=== PATIENT | female | born 1990 ===

== ENCOUNTER 2017-01-23 23:14 | Emergency (ER) | payer MEDICAID, OTHER ==
[2017-01-24 05:01] VITALS: BP 120/73; PULSE 94; RESP 18; TEMP 98
--- NOTE | 2017-01-24 08:04 | OBDCSUM ---
Datetime: 01/24/2017 00:30 Discharged to, Provider: Home Follow up at, Provider: Dr Centeno Disch Instr Activity: Normal activity Disch Instr Diet: Regular Discharge Diagnosis, Provider: Matt Labor - Undelivered Discharge Time: 01/24/2017 00:35 Follow up in weeks, Provider: 01/27/17 as scheduled Disch Referrals: None
--- NOTE | 2017-01-24 08:05 | OBHP ---
Datetime: 01/24/2017 00:58 IP Adm Impression: Term, intrauterine IP Admit Plan: Observation/Evaluation; Discharge home Admit Comment, IP Provider: Patient is a @ 37.5 wks, presents with contractions since 5am, no v aginal bleeding, no leaking, +FM. Patient has no issues in the , no medical problems, no all ergies, no medications. VE=1-2/70/-3, LKA=346 mod barry, +early decel noted and accelerations noted. Soy newman does not appear to be in active labor at this time. Labor precautions given, patient discharged home, F/U appt in office on 01/27 Pelvic Type - PN: Adequate Extremities - PN: Normal Abdomen - PN: Normal Back - PN: Normal Breast - PN: Normal Lungs - PN: Normal Heart - PN: Normal Thyroid - PN: Normal Neurologic - PN: Normal HEENT - PN: Normal General - PN: Normal FHR - Baseline A Provider: 145 Contraction Comments Provider: occasional EGA AdmitDate IP: 37.5 Vital Signs Provider: Reviewed; Within Normal Limits IP Chief Complaint: Uterine contractions NICHD Variability Prov Fetus A: Moderate 6-25bpm NICHD Accel Fetus A IP Provider: 15X15 FHR Category Provider Fetus A: Category I NICHD Decel Fetus A IP Provider: Early Dilatation, Provider: 1-2 Effacement, Provider: 70 Station, Provider: -3 Genitourinary Exam: Normal DTRs - PN: Normal
== END 2017-01-24 00:40 | disposition home or self-care (01) ==
LOC: H.EROB2 23:14
DX: O47.1 False labor at or after 37 completed weeks of gestation (principal); Z3A.37 37 weeks gestation of pregnancy

== ENCOUNTER 2017-01-24 20:09 | Inpatient (IN) | payer OTHER ==
[2017-01-24 20:23] VITALS: BMI 29.9
--- NOTE | 2017-01-24 20:47 | OBADHP ---
Datetime: 01/24/2017 20:38 Admit Comment, IP Provider: 26yo g1 edc 02/01 @38.6wks with c/o painful ctxs 03/24 since 5am. denies srom or decreased fm. state ob hx unremarkable pmhx_ pshx: denies nkda med: pnv shx: denies i: 38.6wks labor eval p observe Pelvic Type - PN: Adequate Extremities - PN: Normal Abdomen - PN: Normal Heart - PN: Normal Neurologic - PN: Normal HEENT - PN: Normal General - PN: Normal FHR - Baseline A Provider: 150 Membranes, Provider: Intact Contraction Comments Provider: q 90sec Vital Signs Provider: Within Normal Limits IP Chief Complaint: Uterine contractions NICHD Variability Prov Fetus A: Moderate 6-25bpm NICHD Decel Fetus A IP Provider: None Dilatation, Provider: 2 Effacement, Provider: 80 Station, Provider: -1 Genitourinary Exam: Normal EGA AdmitDate IP: 37.5 IP Adm Impression: Term, intrauterine IP Admit Plan: Observation/Evaluation Datetime: 01/24/2017 00:58 Back - PN: Normal Breast - PN: Normal Lungs - PN: Normal Thyroid - PN: Normal NICHD Accel Fetus A IP Provider: 15X15 FHR Category Provider Fetus A: Category I DTRs - PN: Normal
[2017-01-24] MEDS: Lactated Ringer's 1,000 ML IV SCH (22:00)
[2017-01-24 23:29] LABS: BASO # 0.1 K/uL (0.0-0.2); BASO % 0.4 % (0.0-2.0); EOS % 0.2 % (0.0-4.0); HEMOGLOBIN 8.5 g/dL (12.0-16.0); LYMPH # 3.1 K/uL (1.0-4.3); LYMPH % 23.5 % (20.0-40.0); MEAN CELL VOLUME 68.9 fl (81.0-99.0); MEAN CORPUSCULAR HEMOGLOBIN 20.5 pg (27.0-31.0); MEAN CORPUSCULAR HGB CONC 29.7 g/dL (33.0-37.0); MEAN PLATELET VOLUME 8.2 fl (7.2-11.7); MONO # 1.2 K/uL (0.0-0.8); NEUT # 8.9 K/uL (1.8-7.0); NEUT % 66.9 % (50.0-75.0); RBC 4.16 Mil/uL (3.80-5.20); RED CELL DISTRIBUTION WIDTH 23.7 % (11.5-14.5); WHITE BLOOD COUNT 13.2 K/uL (4.8-10.8)
[2017-01-25] MEDS: Lactated Ringer's 1,000 ML IV SCH (06:00)
[2017-01-25] MEDS ORDERED: Lactated Ringer's 1,000 ML IV SCH ×2 (08:00→11:05)
--- NOTE | 2017-01-25 08:00 | OBADHP ---
Datetime: 01/25/2017 07:58 Admit Comment, IP Provider: 26yo g1 edc 02/01 @38.6wks with c/o painful ctxs / since 5am. denies srom or decreased fm. state ob hx unremarkable. pt states she was able to sleep after receiving morph ine. she c/o onset of painful ctxs, desires epidural pmhx_ pshx: denies nkda med: pnv shx: denies o: 5cm/90/-1 i: 38.6wks labor p admit for epidural Dilatation, Provider: 5 Effacement, Provider: 90 Station, Provider: -1 Datetime: 01/24/2017 20:38 Comments, ACOG Physical Exam: gbs, hiv, rpr neg EGA AdmitDate IP: 37.5
[2017-01-25] MEDS ORDERED: Fentanyl/Bupivacaine HCl 250 ML EPI ONE (08:13)
--- NOTE | 2017-01-25 10:16 | OBPN ---
Datetime: 01/25/2017 10:11 IP Progress Impression: Normal progression of labor IP Informed Consent Obtain: Vaginal Delivery IP Procedures: Artificial ROM IP Progress Plan: Continue present management Membranes, Provider: Ruptured Contraction Comments Provider: q 2-3 mins FHR - Baseline A Provider: 140 IP Progress Note Comment: Patient is comfortable s/p epidural. VE=6/90/-1, AROM, clear fluid [id number] mod barry, +accels, no decels TOCO = ctxning q 2-3 mins A/P 1. Patient comfortable s/p epidural, now 6cm 2. CEFM and TOCO 3. Re-evaluate as needed Vital Signs Provider: Reviewed; Within Normal Limits NICHD Accel Fetus A IP Provider: 15X15 NICHD Variability Prov Fetus A: Moderate 6-25bpm Dilatation, Provider: 6 Effacement, Provider: 90 Station, Provider: -1 NICHD Decel Fetus A IP Provider: None Datetime: 01/24/2017 00:58 FHR Category Provider Fetus A: Category I
[2017-01-25] MEDS ORDERED: Oxytocin 30 units/LR 500ML 30 U/500 ML BAG IV ONE (11:25)
--- NOTE | 2017-01-25 11:34 | OBPN ---
Datetime: 01/25/2017 11:18 IP Progress Impression: Normal progression of labor IP Informed Consent Obtain: Vaginal Delivery IP Procedures: Sterile Vag Exam IP Progress Plan: Continue present management Membranes, Provider: Ruptured Contraction Comments Provider: q 2-4 mins FHR - Baseline A Provider: 140 IP Progress Note Comment: Patient evaluated, now 8cm/90/0 [id number] mod barry, +accels, no decels TOCO = ctxning q 3-4 mins A/P 1. WIll start Pitocin for augmentation. Patient now 8cm 2. CEFM and TOCO 3. Re-evaluate as needed Vital Signs Provider: Reviewed; Within Normal Limits NICHD Accel Fetus A IP Provider: 15X15 NICHD Variability Prov Fetus A: Moderate 6-25bpm Dilatation, Provider: 8 Effacement, Provider: 90 Station, Provider: 0 NICHD Decel Fetus A IP Provider: None
[2017-01-25] MEDS ORDERED: Benzocaine/Menthol SPRAY ONE (16:14)
--- NOTE | 2017-01-25 16:19 | OBDS ---
DELIVERY PERSONNEL Delivery Doctor: Alejandro Centeno MD Business Services Tech: Eveline Barron RN Anesthesiologist: Den Nowak MD MATERNAL INFORMATION Delivery Anesthesia: Epidural Medications in Delivery: pitocin 20 units Estimated Blood Loss (ml): 150 Placenta Cultured: No Maternal Complications: None Provider Comments: of live male infant OA presentation, 6lbs 7oz, 9/9 followed by shoulders and rest of infant, mouth and nose were suctioned, cord clamped and cut, cord blood obtained, placenta d elivered spontaneously, fundus firm, [id number], vaginal abrasion repaired with 3-0 vicry rapide, nusrat ent tolerated procedure well LABOR SUMMARY EDC: 02/09/2017 00:00 No. Babies in Womb: 0 Attempted: No Labor Anesthesia: Epidural LABOR INFORMATION Reason for Induction: Not Applicable Onset of Labor: 01/24/2017 21:00 Complete Dilatation: 01/25/2017 12:16 Oxytocin: Augmentation Group B Beta Strep: Negative Antibiotics # of Doses: n/a Antibiotics Time of Last Dose: n/a Steroids Given: None Reason Steroids Not Administered: Not Applicable MEMBRANES Membranes Rupture Method: Artificial Rupture of Membranes: 01/25/2017 09:57 Length of Rupture (hrs): 6.08 Amniotic Fluid Color: Clear Amniotic Fluid Amount: Large Amniotic Fluid Odor: Normal STAGES OF LABOR Stage 1 hrs: 15 Stage 1 min: 16 Stage 2 hrs: 3 Stage 2 min: 46 Stage 3 hrs: -1 Stage 3 min: -56 Total Time in Labor hrs: 17 Total Time in Labor min: 6 VAGINAL DELIVERY Episiotomy: None Laceration Extension: N/A Laceration Type: None Other Laceration: Abression Initial Vag Sponge Count: 5 Final Vag Sponge Count: 5 Initial Vag Sharps Count: 1 Final Vag Sharps Count: 1 Sponge Count Correct: Yes Sharps Count Correct: Yes BABY A INFORMATION Delivery Date/Time: 01/25/2017 16:02 Method of Delivery: Vaginal Born in Route : No : N/A Forceps: N/A Vacuum Extraction: N/A Shoulder Dystocia : No SHOULDER DYSTOCIA BABY A Delivery Date/Time: 01/25/2017 16:02 PRESENTATION/POSITION BABY A Presentation: Breech Cephalic Presentation: Vertex Vertex Position: OA Breech Presentation: N/A PLACENTA INFORMATION BABY A Placenta Delivery Time : 01/25/2017 14:06 Placenta Method of Delivery: Spontaneous Placenta Status: Delivered SCORES BABY A Heart Rate 1 min: >100 bpm Resp Effort 1 min: Good Cry Reflex Irritability 1 min: Cough or Sneeze or Pulls Away Muscle Tone 1 min: Active Motion Color 1 min: Body [place], Extremities Blue SCORE 1 MIN: 9 Heart Rate 5 min: >100 bpm Resp Effort 5 min: Good Cry Reflex Irritability 5 min: Cough or Sneeze or Pulls Away Muscle Tone 5 min: Active Motion Color 5 min: Body [place], Extremities Blue SCORE 5 MIN: 9 INFANT INFORMATION BABY A Gestational Age at Delivery: 39.0 Gestational Status: Term Infant Outcome : Liveborn Infant Condition : Stable Sex: Male IDENTIFICATION/MEDS BABY A ID Band Number: [id number] WEIGHT/LENGTH BABY A Birthweight (gms): 2925 Infant Weight (lb): 6 Infant Weight (oz): 7 CORD INFORMATION BABY A No. Cord Vessels: 3 Nuchal Cord : N/A Cord Blood Taken: Yes Infant Suction: Mouth; Nose
[2017-01-25] MEDS ORDERED: Oxycodone/Acetaminophen 5/325 mg Tab PO PRN (16:20)
[2017-01-25] MEDS ORDERED: Benzocaine/Menthol SPRAY TOP PRN (16:20)
[2017-01-26 07:22] LABS: MEAN CELL VOLUME 68.1 fl (81.0-99.0); MEAN CORPUSCULAR HEMOGLOBIN 20.9 pg (27.0-31.0); MEAN CORPUSCULAR HGB CONC 30.7 g/dL (33.0-37.0); RBC 3.28 Mil/uL (3.80-5.20); RED CELL DISTRIBUTION WIDTH 23.8 % (11.5-14.5); WHITE BLOOD COUNT 17.7 K/uL (4.8-10.8)
[2017-01-26 07:36] LABS: HEMOGLOBIN 6.9 g/dL (12.0-16.0)
--- NOTE | 2017-01-26 08:49 | OBPPN ---
Datetime: 01/26/2017 08:46 PP Pain Prov: Within normal limits PP Nausea Prov: Denies PP Flatus Prov: Yes PP Breasts Prov: Normal PP Heart Prov: Normal PP Lungs Prov: Normal PP Abdomen/Uterus Prov: Normal PP Lochia Prov: Normal PP Vulva/Perineum Prov: Normal PP CVA Tenderness Prov: Normal PP Extremities Prov: Normal PP Comments Phys Exam Prov: Fundus firm under umbilicus PP Impression Prov: Normal progression PP Plan Prov: Continue present management PP Progress Note Prov: Patient denies CP, no SOB, no N/V, tolerating PO diet, ambulating/voiding wel l, mild lochia, abdominal pain tolerable with meds, A/P PPD#1 1. Reg diet 2. Percocet/motrin prn pain 3. Encourage ambulation/ 4. COntinue routine orders IP PP Procedures: None Vital Signs Provider PP: Reviewed; Within Normal Limits
[2017-01-26] MEDS: Multivitamin With Minerals Tab PO SCH (09:32)
[2017-01-27] MEDS: Multivitamin With Minerals Tab PO SCH (09:23)
--- NOTE | 2017-01-27 09:54 | OBPPN ---
Datetime: 01/27/2017 09:47 PP Pain Prov: Within normal limits PP Nausea Prov: Denies PP Flatus Prov: Yes PP Breasts Prov: Not Done PP Heart Prov: Normal PP Lungs Prov: Normal PP Abdomen/Uterus Prov: Normal PP Lochia Prov: Normal PP Vulva/Perineum Prov: Normal PP CVA Tenderness Prov: Normal PP Extremities Prov: Normal PP Progress Prov: Normal PP Impression Prov: Normal progression PP Plan Prov: Discharge PP Impression Other Prov: anemia PP Progress Note Prov: She feels fine. No dizziness. No SOB. No heavy VB. A: S/P day 2 Anemia - asymptomatic PLAN: Motrin/FeSO4 dischage home follow up [facility] 6w Vital Signs Provider PP: Reviewed; Within Normal Limits Datetime: 01/26/2017 08:46 PP BM Prov: No
--- NOTE | 2017-01-27 09:54 | OBDCSUM ---
Datetime: 01/27/2017 09:51 Discharged to, Provider: Home Follow up at, Provider: Maricruz Disch Instr Activity: Normal activity Disch Instr Diet: Regular Discharge Instructions, Provider: Routine instructions given Discharge Diagnosis, Provider: Term Delivered Follow up in weeks, Provider: 6w Disch Referrals: None Contraception discussed, Prov: Yes Discharge Diagnosis Prov Other: Anemia
[2017-01-27] MEDS ORDERED: Measles, Mumps, and Rubella 0.5 ML VIAL SC ONE (11:27)
[2017-01-27 22:21] VITALS: BP 107/63; PULSE 77; RESP 18; TEMP 98.8; O2SAT 100
== END 2017-01-27 14:20 | disposition home or self-care (01) | DRG 373 ==
LOC: H.EROB2 20:09 → H.L&D 22:14 → H.EROBSV 22:14 → OBSVTOIN 01-25 07:38 → H.OB/GYN 01-25 18:20
PROVIDERS: ADMIT Obstetrics & Gynecology; ATTEND Obstetrics & Gynecology
PROC: 10E0XZZ Delivery of Products of Conception, External Approach (ICD-10-PCS; principal; 2017-01-25)
PROC: 0UQGXZZ Repair Vagina, External Approach (ICD-10-PCS; 2017-01-25)
PROC: 4A1HXCZ Monitoring of Products of Conception, Cardiac Rate, External Approach (ICD-10-PCS; 2017-01-25)
DX: O99.02 Anemia complicating childbirth (principal); D64.9 Anemia, unspecified; Z37.0 Single live birth; Z3A.39 39 weeks gestation of pregnancy

== ENCOUNTER 2018-08-14 10:40 | Emergency (ER) | payer OTHER ==
[2018-08-14 10:49] VITALS: BMI 22.4
[2018-08-14 10:50] VITALS: O2SAT 100
--- NOTE | 2018-08-14 11:57 | ED PDOC ---
HPI: General Adult Time Seen by Provider: 08/14/18 10:56 Chief Complaint (Nursing): Shortness Of Breath Chief Complaint (Provider): Weakness History Per: Patient History/Exam Limitations: no limitations Onset/Duration Of Symptoms: Days (x7) Current Symptoms Are (Timing): Still Present Additional Complaint(s): Patient is a 27 y/o female with a PMHx of anemia who presents to the ED for evaluation of weakness over the past week. Patient complains of getting winded and having SOB. Patient has had similar symptoms in the past when her iron levels were too low. Patient started taking iron gummies yesterday but her weakness became so severe today, thus, prompting her ED visit. Of note, patient has had been on her period since 08/12/2018 which is normal but heavy. Patient has never had a transfusion. Patient was seen by PCP but has not gotten back her results. PCP: Dr. Juliocesar Morse Past Medical History Reviewed: Historical Data, Nursing Documentation, Vital Signs Vital Signs: Last Vital Signs Temp 97.7 F 08/14/18 10:49 Pulse 87 08/14/18 10:49 Resp 17 08/14/18 10:49 BP 114/77 08/14/18 10:49 Pulse Ox 100 08/14/18 10:49 - Medical History PMH: Anemia Denies: Chronic Kidney Disease - Surgical History Surgical History: No Surg Hx - Family History Family History: States: Diabetes - Social History Current smoker - smoking cessation education provided: No Ex-Smoker (has not smoked in the last 12 months): No - Home Medications Home Medications: Ambulatory Orders Medication Instructions Recorded Vit Calc,Iron,Folic 1 each PO DAILY #30 tablet 07/19/16 [ Vitamins] Ibuprofen [Motrin] 600 mg PO Q6H PRN #30 tab 01/27/17 No Known Home Med 06/10/17 Ferrous Sulfate [Feosol] 325 mg PO TID #15 tab 08/14/18 - Allergies Allergies/Adverse Reactions: Allergies Allergy/AdvReac Type Severity Reaction Status Date / Time No Known Allergies Allergy Verified 05/27/18 13:59 Review of Systems ROS Statement: Except As Marked, All Systems Reviewed And Found Negative (as per HPI) Cardiovascular: Positive for: Palpitations Respiratory: Positive for: Shortness of Breath Neurological: Positive for: Weakness, Headache Physical Exam - Reviewed Nursing Documentation Reviewed: Yes Vital Signs Reviewed: Yes - Physical Exam Appears: Positive for: No Acute Distress (tired appearing) Head Exam: Positive for: ATRAUMATIC, NORMOCEPHALIC Skin: Positive for: Pallor Eye Exam: Positive for: EOMI, PERRL ENT: Negative for: Pharyngeal Erythema, Tonsillar Exudate Neck: Positive for: Painless ROM, Supple Cardiovascular/Chest: Positive for: Regular Rate, Rhythm. Negative for: Murmur Respiratory: Positive for: Normal Breath Sounds. Negative for: Respiratory Distress Gastrointestinal/Abdominal: Positive for: Soft. Negative for: Tenderness Back: Positive for: Normal Inspection. Negative for: Decreased ROM Extremity: Positive for: Normal ROM. Negative for: Deformity Lymphatic: Negative for: Adenopathy Neurologic/Psych: Positive for: Alert. Negative for: Motor/Sensory Deficits - Laboratory Results Result Diagrams: 08/14/18 11:43 08/14/18 11:43 - ECG ECG Rhythm: Positive for: Normal QRS, Normal ST Segment, Sinus Rhythm Rate: 93 O2 Sat by Pulse Oximetry: 100 (RA) Pulse Ox Interpretation: Normal Medical Decision Making Medical Decision Making: Time: 1110 Impression: Weakness DDx includes but not limited to anemia, dehydration, and electrolyte abnormality. Plan: Type and Screen EKG CMP Ferritin Iron & TIBC Magnesium Phosphorus TSH Urine Urine Dipstick CBC PTT IV Insertion Scribe Attestation: Documented by Jesse Peters, acting as a scribe for Tiara Montilla MD. Provider Scribe Attestation: All medical record entries made by the Scribe were at my direction and personally dictated by me. I have reviewed the chart and agree that the record accurately reflects my personal performance of the history, physical exam, medical decision making, and the department course for this patient. I have also personally directed, reviewed, and agree with the discharge instructions and disposition. Disposition - Clinical Impression Clinical Impression: Iron deficiency anemia Counseled Patient/Family Regarding: Studies Performed, Diagnosis, Need For Followup - Disposition Referrals: Lito Proctor MD [Medical Doctor] - Disposition: Routine/Home Disposition Time: 12:56 Condition: STABLE Additional Instructions: TAKE TABLETS OR CONTINUE WITH YOUR GUMMIES (DO NOT TAKE BOTH) FOLLOW UP WITH DR PROCTOR NEXT WEEK FOR REEVALUATION Prescriptions: Ferrous Sulfate [Feosol] 325 mg PO TID #15 tab Instructions: Anemia Caused by Low Iron, Adult (DC) Forms: [facility] ED School/Work Excuse
[2018-08-14 12:16] LABS: BASO % 0.6 % (0.0-2.0); EOS # 0.1 K/uL (0.0-0.7); EOS % 0.7 % (0.0-4.0); HEMOGLOBIN 9.2 g/dL (12.0-16.0); LYMPH # 2.6 K/uL (1.0-4.3); LYMPH % 33.3 % (20.0-40.0); MEAN CELL VOLUME 66.3 fl (81.0-99.0); MEAN CORPUSCULAR HEMOGLOBIN 20.3 pg (27.0-31.0); MEAN CORPUSCULAR HGB CONC 30.6 g/dL (33.0-37.0); MEAN PLATELET VOLUME 7.7 fl (7.2-11.7); MONO # 0.7 K/uL (0.0-0.8); MONO % 9.3 % (0.0-10.0); NEUT # 4.3 K/uL (1.8-7.0); NEUT % 56.1 % (50.0-75.0); RBC 4.54 Mil/uL (3.80-5.20); RED CELL DISTRIBUTION WIDTH 17.3 % (11.5-14.5); WHITE BLOOD COUNT 7.7 K/uL (4.8-10.8)
[2018-08-14 12:17] LABS: IRON 12 ug/dL (37-170)
[2018-08-14 12:22] LABS: ALB/GLOB RATIO 1.1 (1.0-2.1); ALBUMIN 4.8 g/dL (3.5-5.0); ALT/SGPT 30 U/L (9-52); AST/SGOT 53 U/L (14-36); BLOOD UREA NITROGEN 13 mg/dl (7-17); CALCIUM 9.7 mg/dL (8.4-10.2); GFR NON-AFRICAN AMERICAN > 60
[2018-08-14 12:26] LABS: % IRON SATURATION 3 % (20-55); TOTAL IRON BINDING CAPACITY 415 ug/dL (250-450)
[2018-08-14 12:28] LABS: INR 1.1; PROTHROMBIN TIME 12.8 Seconds (9.8-13.1)
[2018-08-14 12:31] LABS: PARTIAL THROMBOPLASTIN TIME 30.4 Seconds (25.6-37.1)
[2018-08-14 12:56] LABS: FERRITIN 3.1 ng/Ml (6.24-137.0)
[2018-08-14 14:29] VITALS: BP 117/66; PULSE 85; RESP 17; TEMP 98.5
[2018-08-14] MEDS ORDERED: Bacitracin 500 Units/gm Oint Foilpak UD ONE (17:20)
--- NOTE | 2018-08-15 10:01 | CARD ---
APPROVED REPORT Date of service: 08/14/2018 EKG Measurement Heart [id number] <Conclusion> Normal sinus rhythm Normal ECG
== END 2018-08-14 14:27 | disposition home or self-care (01) ==
LOC: H.ER 10:40
DX: D50.9 Iron deficiency anemia, unspecified (principal)
CPT/HCPCS: 80053; 81025; 82728; 83540; 83550; 83735; 84100; 84443; 85025; 85610; 85730; 86850; 86900; 93005; 99285; J1756